=== PATIENT | male | born 1975 | race Caucasian/White ===

== ENCOUNTER 2022-03-08 17:10 | Emergency (ER) | payer OTHER ==
[~2022-03-08 17:10] MED LIST: NORCO 5-325 TA1 EACH PO
[2022-03-08 18:13] LABS: HEMOGLOBIN 15.2 gm/dl (14.0-17.5); RED BLOOD COUNT 5.06 M/UL (4.20-5.50); WHITE BLOOD COUNT 12.7 K/UL (4.5-11.0)
[2022-03-08 18:42] LABS: BUN/CREATININE RATIO 11 (0-10)
[2022-03-08] MEDS ORDERED: CYCLOBENZAPRINE10 MG PO (20:08)
== END 2022-03-08 20:23 | disposition home or self-care (01) ==
LOC: ER1 17:10
PROVIDERS: Family Medicine
DX: S06.0X9A Concussion with loss of consciousness of unspecified duration, initial encounter (principal); S16.1XXA Strain of muscle, fascia and tendon at neck level, initial encounter; S39.012A Strain of muscle, fascia and tendon of lower back, initial encounter; S39.011A Strain of muscle, fascia and tendon of abdomen, initial encounter; S29.011A Strain of muscle and tendon of front wall of thorax, initial encounter; S50.811A Abrasion of right forearm, initial encounter; F17.200 Nicotine dependence, unspecified, uncomplicated; V43.52XA Car driver injured in collision with other type car in traffic accident, initial encounter; Y92.410 Unspecified street and highway as the place of occurrence of the external cause
CPT/HCPCS: 70450; 71260; 72125; 73030; 80053; 81001; 82550; 82553; 83690; 84484; 85025; 93005; 99285; Q9967